=== PATIENT | male | born 1965 | race African-American/Black ===

== ENCOUNTER 2018-07-13 21:37 | Emergency (ER) | payer MEDICAID ==
[~2018-07-13] VITALS: Ht 180.3 cm; Wt 99.8 kg
[2018-07-13 22:16] VITALS: BP 140/88
== END 2018-07-14 03:20 | disposition home or self-care (01) ==
LOC: ER 21:53
DX: J03.90 Acute tonsillitis, unspecified (principal)

== ENCOUNTER 2024-08-06 18:30 | Emergency (ER) | payer MEDICAID ==
[~2024-08-06] VITALS: Ht 180.3 cm; Wt 92.9 kg
[2024-08-06] MEDS: KETOROLAC TROMETH 60MG/2ML VIAL IM ONE (20:15)
[2024-08-06 20:18] VITALS: BP 125/74; PULSE 73; RESP 17; TEMP 98; O2SAT 98
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
[2024-08-06] MEDS ORDERED: IBUP-1456 PO (21:45)
[2024-08-06] MEDS ORDERED: TIZA-142 PO (21:45)
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
== END 2024-08-06 21:59 | disposition home or self-care (01) ==
LOC: ER 18:35
DX: S20.219A Contusion of unspecified front wall of thorax, initial encounter (principal); S29.012A Strain of muscle and tendon of back wall of thorax, initial encounter; S33.5XXA Sprain of ligaments of lumbar spine, initial encounter; S13.4XXA Sprain of ligaments of cervical spine, initial encounter; V89.2XXA Person injured in unspecified motor-vehicle accident, traffic, initial encounter; Y93.89 Activity, other specified; Y92.89 Other specified places as the place of occurrence of the external cause; Y99.8 Other external cause status
CPT/HCPCS: 71111; 72040; 72070; 72100; 96372; 99284; J1885